=== PATIENT | male | born 1955 ===

== ENCOUNTER 2025-02-24 10:43 | Inpatient (IN) | payer OTHER ==
[~2025-02-24] VITALS: Ht 170.2 cm; Wt 86.2 kg
[2025-02-24] MEDS ORDERED: LEVOTHYROXINE25 MCG (12:07)
[2025-02-24] MEDS ORDERED: AMLODIPINE-OLM1 EACH (12:07)
[2025-02-24] MEDS ORDERED: ROSUVASTATIN CAL5 MG (12:07)
[2025-03-02] MEDS ORDERED: METRONIDAZOLE/SODIUM CHLORIDE 500 MG/100 ML PIGGYBACK IV ONE (08:37)
[2025-03-02] MEDS ORDERED: CEFTRIAXONE SODIUM 2,000 MG VIAL ONE (08:37)
[2025-03-02] MEDS ORDERED: POVIDONE-IODINE 118 ML BOTT TOP ONE (10:05)
[2025-03-02] MEDS ORDERED: BUPIVACAINE HCL/MPF 0.5% 30ML VIAL ONE (10:05)
[2025-03-02] MEDS ORDERED: LIDOCAINE HCL 1%/EPINEPHRINE 20ML VIAL IJ ONE (10:06)
[2025-03-02] MEDS ORDERED: ONDANSETRON HCL 2 MG/ML VIAL IV PRN (11:30)
[2025-03-02] MEDS ORDERED: OxyCODONE HCL 5 MG TABLET (ROXICODONE) PO PRN (11:30)
[2025-03-02] MEDS ORDERED: MORPHINE SULFATE 4 MG/ML CARTRIDGE IV PRN (11:30)
[2025-03-02] MEDS ORDERED: RINGERS SOLUTION,LACTATED 1,000 ML IV SCH (11:30)
[2025-03-02] MEDS ORDERED: SIMETHICONE 125 MG CAPSULE PO SCH (13:00)
[2025-03-02] MEDS ORDERED: HYOSCYAMINE SULFATE 0.125 MG TAB.SUBL SL SCH (13:00)
[2025-03-02] MEDS ORDERED: ENALAPRILAT DIHYDRATE 1.25 MG/ML VIAL IV PRN (13:30)
[2025-03-02] MEDS ORDERED: ACETAMINOPHEN 500 MG GEL..CAP PO SCH (14:00)
[2025-03-02 15:06] LABS: BASO % 0.2 % (0.1-1.2); EOS # 0.01 (0.04-0.54); EOS % 0.1 % (0.7-7.0); LYMPH # 0.64 (1.18-3.74); LYMPH % 4.1 % (19.3-53.1); MEAN PLATELET VOLUME 8.70 fl (9.4-12.4); MONO # 0.93 (0.24-0.82); MONO % 5.9 % (4.7-12.5); NEUT # 14.12 (1.56-6.13); NEUT % 89.3 % (34.0-71.1); RED CELL DISTRIBUTION WIDTH 13.4 % (11.6-14.4)
[2025-03-02] MEDS ORDERED: METOCLOPRAMIDE HCL 5 MG/ML VIAL ONE (16:11)
[2025-03-02] MEDS ORDERED: HYOSCYAMINE SULFATE 0.125 MG TAB.SUBL ONE (16:11)
[2025-03-02] MEDS ORDERED: GABAPENTIN 300 MG CAPSULE PO ONE (16:11)
[2025-03-02] MEDS ORDERED: SIMETHICONE 125 MG CAPSULE PO ONE (16:11)
[2025-03-02] MEDS ORDERED: METOCLOPRAMIDE HCL 5 MG/ML VIAL IV SCH (17:00)
[2025-03-02] MEDS ORDERED: GABAPENTIN 300 MG CAPSULE PO SCH (17:00)
[2025-03-02] MEDS ORDERED: ACETAMINOPHEN 500 MG GEL..CAP PO ONE (18:34)
[2025-03-02 19:05] VITALS: BP 126/76; O2SAT 95
[2025-03-02] MEDS ORDERED: FAMOTIDINE/PF 20 MG/2 ML VIAL IV PUSH SCH (21:00)
[2025-03-02] MEDS ORDERED: AMLODIPINE BESYLATE 5 MG TABLET PO SCH (21:00)
[2025-03-03 01:34] VITALS: BP 101/65; O2SAT 97
[2025-03-03] MEDS ORDERED: PATIENTS OWN MEDICATION (MEDICAMENTO EN PISO) PO SCH (06:00)
[2025-03-03 07:07] LABS: BASO % 0.1 % (0.1-1.2); EOS # 0.02 (0.04-0.54); EOS % 0.1 % (0.7-7.0); LYMPH # 0.79 (1.18-3.74); LYMPH % 5.9 % (19.3-53.1); MEAN PLATELET VOLUME 8.90 fl (9.4-12.4); MONO # 1.48 (0.24-0.82); MONO % 11.0 % (4.7-12.5); NEUT # 11.10 (1.56-6.13); NEUT % 82.6 % (34.0-71.1); RED CELL DISTRIBUTION WIDTH 13.6 % (11.6-14.4)
[2025-03-03 07:21] LABS: BUN CREA RATIO 12.0 (7.0-25.0); CREATININE SERUM 0.74 mg/dL (0.70-1.30); GFR 105.18; GLUCOSE FASTING 111.0 mg/dL (65-100); OSMOLALITY SERUM 279.0 MOSM/KG (275-295)
[2025-03-03] MEDS ORDERED: LACTULOSE 20 G/30 ML BLIST.PACK PO SCH (09:00)
[2025-03-03] MEDS ORDERED: LACTOBACILLUS ACIDOPHILUS 1 CAP CAP PO SCH (09:00)
[2025-03-03 11:17] VITALS: BP 102/66; O2SAT 93
[2025-03-03 16:00] VITALS: BP 102/66; O2SAT 99
[2025-03-03] MEDS ORDERED: ROSUVASTATIN CALCIUM 10 MG TABLET PO SCH (17:00)
[2025-03-03] MEDS ORDERED: ENOXAPARIN SODIUM 40 MG/0.4 ML SYRINGE SUBCUTANEO SCH (17:00)
[2025-03-04 02:03] VITALS: BP 108/68; O2SAT 96
[2025-03-04 06:55] LABS: BASO % 0.2 % (0.1-1.2); EOS # 0.05 (0.04-0.54); EOS % 0.4 % (0.7-7.0); LYMPH # 0.77 (1.18-3.74); LYMPH % 6.2 % (19.3-53.1); MEAN PLATELET VOLUME 9.20 fl (9.4-12.4); MONO # 0.93 (0.24-0.82); MONO % 7.5 % (4.7-12.5); NEUT # 10.51 (1.56-6.13); NEUT % 85.3 % (34.0-71.1); RED CELL DISTRIBUTION WIDTH 13.7 % (11.6-14.4)
[2025-03-04 07:21] LABS: ALT/SGPT 32.0 U/L (12-78); AST/SGOT 22.0 U/L (15-37); BILIRUBIN TOTAL 1.25 mg/dL (0.3-1.2); BUN CREA RATIO 11.0 (7.0-25.0); CREATININE SERUM 0.66 mg/dL (0.70-1.30); GFR 120.03; GLOBULINA 2.8 G/DL (2.4-3.5); GLUCOSE FASTING 97.0 mg/dL (65-100); OSMOLALITY SERUM 281.0 MOSM/KG (275-295)
[2025-03-04] MEDS ORDERED: ENOXAPARIN SODIUM 40 MG/0.4 ML SYRINGE SUBCUTANEO SCH (09:00)
[2025-03-04 09:11] VITALS: BP 131/80; O2SAT 95
== END 2025-03-04 13:02 | disposition home or self-care (01) | DRG 334 ==
LOC: O/R 03-02 08:00 → SURH 03-02 08:00
PROVIDERS: ADMIT Colon & Rectal Surgery; ATTEND Colon & Rectal Surgery
PROC: 0DBP4ZZ Excision of Rectum, Percutaneous Endoscopic Approach (ICD-10-PCS; principal; 2025-03-02 14:00)
DX: C20 Malignant neoplasm of rectum (principal); I11.9 Hypertensive heart disease without heart failure; E03.9 Hypothyroidism, unspecified